=== PATIENT | female | born 1995 | race Hispanic/Latino ===

== ENCOUNTER → 2018-10-22 | Outpatient (CLI) | payer BC ==
[2018-10-22 11:06] LABS: PLATELET FUNCTION ANALYSIS ADP 112 SEC (62-100); PLATELET FUNCTION ANALYSIS EPI > 192 SEC (55-192)
[2018-10-22 11:08] LABS: HEMATOCRIT 39.1 % (36-48); PLATELET COUNT (AUTO) 219 K/uL (130-400)
== END | disposition home or self-care (01) ==
LOC: LAB 09:25
PROVIDERS: ATTEND Internal Medicine
DX: R23.3 Spontaneous ecchymoses (principal)
CPT/HCPCS: 36415; 85576